=== PATIENT | male | born 1950 ===

== ENCOUNTER → 2020-02-20 | Outpatient (CLI) | payer MEDICARE | LOC: LAB 17:54 → LAB SHORT 17:54 | DX: L02.222 Furuncle of back [any part, except buttock and flank] (principal); S90.121A Contusion of right lesser toe(s) without damage to nail, initial encounter; D48.5 Neoplasm of uncertain behavior of skin; L57.0 Actinic keratosis; L82.0 Inflamed seborrheic keratosis; I83.93 Asymptomatic varicose veins of bilateral lower extremities; D22.5 Melanocytic nevi of trunk; D22.71 Melanocytic nevi of right lower limb, including hip; D22.72 Melanocytic nevi of left lower limb, including hip; L81.4 Other melanin hyperpigmentation | CPT/HCPCS: 87070; 87205 ==

== ENCOUNTER → 2021-04-20 | Outpatient (CLI) | payer MEDICARE | LOC: LAB SHORT 13:43 | DX: D48.5 Neoplasm of uncertain behavior of skin (principal) | CPT/HCPCS: 88342 ==

== ENCOUNTER → 2021-12-08 | Outpatient (CLI) | payer MEDICARE | END | disposition home or self-care (01) | LOC: LAB 07:15 → LAB SHORT 07:15 | DX: S61.002A Unspecified open wound of left thumb without damage to nail, initial encounter (principal) | CPT/HCPCS: 87070; 87205 ==

== ENCOUNTER 2022-02-08 02:37 | Day surgery (SDC) | payer MEDICARE | END 2022-02-08 23:08 | disposition home or self-care (01) | LOC: WOUND 02:37 | DX: L89.893 Pressure ulcer of other site, stage 3 (principal); M79.671 Pain in right foot; R22.41 Localized swelling, mass and lump, right lower limb; Z85.46 Personal history of malignant neoplasm of prostate; Z92.21 Personal history of antineoplastic chemotherapy | CPT/HCPCS: G0463 ==

== ENCOUNTER 2022-02-16 02:57 | Day surgery (SDC) | payer MEDICARE | END 2022-02-16 23:21 | disposition home or self-care (01) | LOC: WOUND 02:57 | DX: L89.893 Pressure ulcer of other site, stage 3 (principal); C61 Malignant neoplasm of prostate; C79.51 Secondary malignant neoplasm of bone; G62.9 Polyneuropathy, unspecified | CPT/HCPCS: A9270; G0463 ==

== ENCOUNTER 2022-02-23 03:55 | Day surgery (SDC) | payer MEDICARE | END 2022-02-23 23:17 | disposition home or self-care (01) | LOC: WOUND 03:55 | DX: L89.893 Pressure ulcer of other site, stage 3 (principal); S91.104D Unspecified open wound of right lesser toe(s) without damage to nail, subsequent encounter; C61 Malignant neoplasm of prostate; G90.09 Other idiopathic peripheral autonomic neuropathy; M79.671 Pain in right foot; R22.41 Localized swelling, mass and lump, right lower limb ==

== ENCOUNTER 2022-03-02 08:00 | Day surgery (SDC) | payer MEDICARE | END 2022-03-02 23:59 | disposition home or self-care (01) | LOC: WOUND 08:00 | DX: L89.893 Pressure ulcer of other site, stage 3 (principal); L89.90 Pressure ulcer of unspecified site, unspecified stage; C61 Malignant neoplasm of prostate; G90.09 Other idiopathic peripheral autonomic neuropathy; M79.671 Pain in right foot; R22.41 Localized swelling, mass and lump, right lower limb | CPT/HCPCS: G0463 ==

== ENCOUNTER 2022-03-16 00:19 | Day surgery (SDC) | payer MEDICARE | END 2022-03-16 22:57 | disposition home or self-care (01) | LOC: WOUND 00:19 | DX: L89.893 Pressure ulcer of other site, stage 3 (principal); C61 Malignant neoplasm of prostate; G90.09 Other idiopathic peripheral autonomic neuropathy | CPT/HCPCS: G0463 ==